=== PATIENT | female | born 1985 | race Caucasian/White ===

== ENCOUNTER 2018-03-14 23:57 | Inpatient (IN) | payer BC, OTHER ==
[2018-03-15] MEDS ORDERED: OXYTOCIN/DEXTROSE 5%-WATER 30 UNITS/500 ML BAG IV ONE (00:11)
[2018-03-15] MEDS ORDERED: DEXTROSE 5%-LACTATED RINGERS 1,000 ML IV PRN (00:11)
[2018-03-15] MEDS ORDERED: ONDANSETRON HCL/PF 2 MG/ML VIAL IV PRN ×2 (00:11→15:08)
[2018-03-15] MEDS: MISOPROSTOL 100 MCG TABLET VG PRN ×2 (03:04→07:09)
[2018-03-15 03:30] LABS: Cocaine Ur Negative (NEGATIVE); Urine Barbiturate Negative (NEGATIVE); Urine Benzodiazepines Negative (NEGATIVE); Urine Opiates Negative (NEGATIVE); Urine PCP Negative (NEGATIVE); Urine THC Negative (NEGATIVE)
[2018-03-15] MEDS: RINGER'S SOLUTION,LACTATED 1,000 ML IV ONE ×2 (15:00→15:48)
[2018-03-15] MEDS ORDERED: NALOXONE HCL 1 MG/1 ML SYRG IV PRN (15:08)
[2018-03-15] MEDS ORDERED: BUPIVACAINE HCL/0.9 % NACL/PF 250 ML EP PRN (15:08)
[2018-03-15] MEDS ORDERED: fentaNYL CITRATE/PF 50 MCG/ML AMPUL IT SCH (15:15)
--- NOTE | 2018-03-15 15:31 | ANES ---
Anesthesia Pre Procedure Eval Vitals/Labs: Last Vital Signs Temp 36.2 C 03/15/18 01:25 Pulse 85 03/15/18 01:25 Resp 18 03/15/18 01:25 BP 116/78 03/15/18 01:25 Pulse Ox 99 03/15/18 01:25 HOME MEDICATIONS Ascorbic Acid [Vitamin C] 500 mg PO DAILY 08/12/15 [Last Taken 03/14/18] Calcium Carbonate [Calcium] 500 mg PO DAILY 08/12/15 [Last Taken 03/13/18] Levothyroxine Sodium [Unithroid] 50 mcg PO DAILY 08/12/15 [Last Taken 03/14/18] RX: Lysine 1,000 mg PO DAILY 08/12/15 [Last Taken 03/14/18] vitamin,calcium,szulgeio-onxe-egrgm acid tablet 1 tab PO DAILY 11/28/17 [Last Taken 03/14/18] Calcium 500 mg PO DAILY 03/15/18 [Last Taken 03/14/18] Allergies/Adverse Reactions: Allergies Allergy/AdvReac Type Severity Reaction Status Date / Time amoxicillin trihydrate Allergy Hives Verified 03/15/18 00:13 [From Augmentin] cefaclor [From Ceclor] Allergy Hives, rash Verified 03/15/18 00:13 hydroxyzine Allergy Hives Verified 03/15/18 00:13 Penicillins Allergy Hives Verified 03/15/18 00:13 potassium clavulanate Allergy Hives, Verified 03/15/18 00:13 [From Augmentin] Racing heart Sulfa (Sulfonamide Allergy Hives, rash Verified 03/15/18 00:13 Antibiotics) - Planned Procedure Planned Procedure: MEDICAL INDUCTION POST DATES Medication List Reviewed:: Yes Allergies Verified: Yes Medical History (Last Reviewed 03/15/18 @ 15:30 by Juventino Lemos CRNA) BMI 31.0-31.9,adult Onset Date: 08/01/16 Body piercing History of wisdom tooth extraction Onset Date: ~2005 Irritable bowel syndrome with constipation and diarrhea Onset Date: ~2016 Wears glasses Abnormal Pap smear of cervix Hx of LEEP approx. 13 years ago Thyroid cyst Onset Date: ~01/2017 Asthma As a child. Hospitalized as a child. Cervical dysplasia Onset Date: ~2005 Cold sore Fibromyalgia Assymptomatic in 2018 Hypothyroidism Questionable diagnosis-2nd opinion said her thyroid was fine. Last TSH 12/12/16 - 3.273. Surgical History (Last Reviewed 03/15/18 @ 15:30 by Juventino Lemos CRNA) mole removal Onset Date: ~2014 2014, 03/2016-Dr. Bowens, 2018-dr bowens H/O LEEP Onset Date: ~2006 2006 History of colonoscopy Onset Date: ~2016 IBSD History of colposcopy Onset Date: ~2006 2006, 2007, 2008, 2009. History of esophagogastroduodenoscopy (EGD) Onset Date: ~2016 Family History (Last Reviewed 03/15/18 @ 15:30 by Juventino Lemos CRNA) Aunt Diabetes Aunt Breast cancer Mother Ovarian cyst Sister Bipolar disorder Personality disorder in adult Sister Ovarian cyst - Family Anesthesia History Family History:: no untoward family reactions to anesthesia, no familial bleeding tendencies, no family history of clotting disorders, no family history of premature - Airway/Neck/Teeth Within Normal Limits:: Yes Teeth Condition: Intact Neck Exam: non-tender, full range of motion Mallampatti Score: 2 Thyromental (T-M) distance: > 6 cm Mandibulo Hyoid distance: > 3 cm - Respiratory Respiratory: chest non-tender, lungs clear Smoking Status: Never smoker Sleep Apnea currently treated: No Sleep Apnea by current assessment: No - Cardiovascular Patient History - Cardiac/Respiratory: No pertinent hx Tolerates Activity: Good Heart Sounds: S1 & S2, Regular - Anesthesia Assessment and Plan ASA Class: PS, II, E Anesthesia Type Plan: Epidural - CSE for labor analgesia
--- NOTE | 2018-03-15 15:48 | ANES ---
Post Anesthesia Discharge - Transfer of Care Transfer of Care handoff given to nurse: Yes - Discharge from PACU Discharge from PACU when meets criteria: Yes - Comfortable post epidural
--- NOTE | 2018-03-15 15:52 | ANES ---
Anesthesia Procedure Note Procedure Note: ANESTHESIA PROCEDURE NOTE Date of Procedure: 03/15/2018 Time of procedure: 1530. Performed by: Juventino Lemos CRNA, MSN Learning Services Coordinator: Meliza Oneill RN. Preprocedure diagnosis: Active labor, labor pain. Post procedure diagnosis: Same. Procedure:Epidural for labor analgesia L3 4. Indications: Labor pain. Findings: See below. Details of the procedure: The patient was placed on the side of the bed in sitting positionand prepped with DuraPrep then draped in a sterile fashion. Lidocaine 1% was infiltrated to the skin and subcutaneous tissues at the level of the L3 4 interspace. An 18-gauge Touhy needle was used to approach the epidural space with loss of resistance technique. Once loss of resistance was achieved a 27-gauge spinal needle was passed through the epidural needle and CSF was contacted. After CSF returned, 20 mcg of fentanyl was injected in the spinal needle was removed the epidural catheter was then threaded approximately 4 cm in the epidural needle was removed. The catheter was taped in place and after careful aspiration 3 mL of 1.5% lidocaine with 1-200,000 epinephrine was injected without change in maternal heart rate or sensorium. . EBL: Minimal. Fluids: N/A. Specimen: N/A. Post procedure condition: The patient tolerated the procedure well with good rel ief. No complications were noted. Thank you for this consultation. Juventino Lemos CRNA, MSN
--- NOTE | 2018-03-15 16:03 | ANES ---
Post Anesthesia Assessment - Vital Signs Vitals: Last Vital Signs Temp 36.5 C 03/15/18 15:51 Pulse 101 H 03/15/18 15:51 Resp 18 03/15/18 01:25 BP 130/77 03/15/18 15:51 Pulse Ox 99 03/15/18 15:51 Airway Patency: Normal - Mental Status Level Of Consciousness: Awake, Alert - Pain Level Pain Score: 0 - N/V Assessment Nausea/Vomiting Presence: None Dehydration:: No
--- NOTE | 2018-03-15 17:26 | HP ---
Chief Complaint - Chief Complaint Date of Service: 03/15/18 Time of Service: 17:19 Chief Complaint: induction of labor History of Present Illness: 32 yo at 40 2/7 wks presents for induction of labor due to early post dates. This complicated by h/o LEEP, hypothyroidism, childhood asthma. Rh positive Rubella immune GBS negative Medical History (Last Reviewed 03/15/18 @ 17:23 by Wallace Mao DO) BMI 31.0-31.9,adult Onset Date: 08/01/16 Body piercing History of wisdom tooth extraction Onset Date: ~2005 Irritable bowel syndrome with constipation and diarrhea Onset Date: ~2016 Wears glasses Abnormal Pap smear of cervix Hx of LEEP approx. 13 years ago Thyroid cyst Onset Date: ~01/2017 Asthma As a child. Hospitalized as a child. Cervical dysplasia Onset Date: ~2005 Cold sore Fibromyalgia Assymptomatic in 2018 Hypothyroidism Questionable diagnosis-2nd opinion said her thyroid was fine. Last TSH 12/12/16 - 3.273. Surgical History: Surgical History (Last Reviewed 03/15/18 @ 17:23 by Wallace Mao DO) mole removal Onset Date: ~2014 2014, 03/2016-Dr. Mcintosh, 2018-dr mcintosh H/O LEEP Onset Date: ~2006 2006 History of colonoscopy Onset Date: ~2016 IBSD History of colposcopy Onset Date: ~2006 2006, 2007, 2008, 2009. History of esophagogastroduodenoscopy (EGD) Onset Date: ~2016 Family History: Family History (Last Reviewed 03/15/18 @ 17:23 by Wallace Mao DO) Aunt Diabetes Aunt Breast cancer Mother Ovarian cyst Sister Bipolar disorder Personality disorder in adult Sister Ovarian cyst Social History: Preferred Language Slovak Smoking Status Never smoker Abuse History No History of abuse Psych History No pertinent hx (Last Updated 03/13/18 @ 09:47 by Wallace Mao DO) No Social History Section defined Review Of Systems (GEN) - Review of Systems Generalized/Overall Review: Present: No Symptoms Reported EENTM: Present: No Symptoms Reported Respiratory: Present: No Symptoms Reported Cardiac: Present: No Symptoms Reported Abdominal: Present: No Symptoms Reported Genitourinary: Present: No Symptoms Reported Musculoskeletal: Present: No Symptoms Reported Neurological: Present: No Symptoms Reported Skin: Present: No Symptoms Reported Immunizations: IMMUNIZATION HX Immunizations Up to Date Yes History of Influenza Vaccine Yes Hx Pneumococcal Vaccination No Allergies/Adverse Reactions: Allergies Allergy/AdvReac Type Severity Reaction Status Date / Time amoxicillin trihydrate Allergy Hives Verified 03/15/18 00:13 [From Augmentin] cefaclor [From Ceclor] Allergy Hives, rash Verified 03/15/18 00:13 hydroxyzine Allergy Hives Verified 03/15/18 00:13 Penicillins Allergy Hives Verified 03/15/18 00:13 potassium clavulanate Allergy Hives, Verified 03/15/18 00:13 [From Augmentin] Racing heart Sulfa (Sulfonamide Allergy Hives, rash Verified 03/15/18 00:13 Antibiotics) Home Medications: HOME MEDICATIONS Ascorbic Acid [Vitamin C] 500 mg PO DAILY 08/12/15 [Last Taken 03/14/18] Calcium Carbonate [Calcium] 500 mg PO DAILY 08/12/15 [Last Taken 03/13/18] Levothyroxine Sodium [Unithroid] 50 mcg PO DAILY 08/12/15 [Last Taken 03/14/18] Lysine 1,000 mg PO DAILY 08/12/15 [Last Taken 03/14/18] vitamin,calcium,mytzobll-wyjk-asmwm acid tablet 1 tab PO DAILY 11/28/17 [Last Taken 03/14/18] Calcium 500 mg PO DAILY 03/15/18 [Last Taken 03/14/18] Exam - Exam Vital Signs: Vital Signs - Last Taken Temp 36.5 C 03/15/18 15:51 Pulse 101 H 03/15/18 15:51 Resp 18 03/15/18 01:25 BP 130/77 03/15/18 15:51 Pulse Ox 99 03/15/18 15:51 Constitutional: Present: Alert, Oriented x3, Cooperative ENT Exam: Present: hearing grossly normal Breasts: Present: Exam deferred Respiratory: Present: lungs clear Cardiovascular/Chest: Present: normal peripheral pulses, regular rate, rhythm, no edema Abdomen: Present: soft, nontender, other - gravid /Rectal: Present: Other - cervix - cl/70/-2 Extremity: Present: non-tender, no pedal edema, no calf tenderness Skin Exam: Present: normal color, warm/dry, no cyanosis Lymphatic: Present: no adenopathy Neurologic: Present: alert, normal mood/affect, oriented x 3 Appearance: Present: appropriate appearance, appropriate insight Eye contact: Present: cooperative, good eye contact, normal speech Thoughts: Present: normal thought pattern Diagnostic Studies: Laboratory Results Urine Opiates Screen Negative (NEGATIVE) 03/15/18 03:20 Barbiturate Screen Negative (NEGATIVE) 03/15/18 03:20 Ur Phencyclidine Scrn Negative (NEGATIVE) 03/15/18 03:20 Urine Amphetamine Negative (NEGATIVE) 03/15/18 03:20 U Benzodiazepines Scrn Negative (NEGATIVE) 03/15/18 03:20 Urine Cocaine Screen Negative (NEGATIVE) 03/15/18 03:20 Urine Marijuana (THC) Negative (NEGATIVE) 03/15/18 03:20 Assessment/Plan - Assessment/Plan (1) Encounter for planned induction of labor Assessment: Admit for cytotec induction of labor. Will probably need cervical band broke at some point. Pitocin augmentation and Epidural PRN. Problem: Acute (2) Hypothyroid Problem: Acute Qualifiers: Hypothyroidism type: unspecified Qualified Code(s): E03.9 - Hypothyroidism, unspecified
--- NOTE | 2018-03-15 17:48 | PN ---
Progess Note - Interim Date: 03/15/18 Time: 17:45 Narrative: 03/15/18 17:45 Patient comfortable with epidural Vital signs stable. Pitocin at 9 mu/min. FHT: 140 baseline, reassuring Contractions q 3-4 min Cervix: 6/90/-2, AROM-old blood and clot, questionable meconium we'll await further loss of fluid to assess better Impression: Intrauterine at 40 2/7 weeks, induction of labor for early post dates Plan: Anticipate normal spontaneous vaginal delivery soon.
[2018-03-15 20:33] LABS: Hematocrit 41.5 % (37.0-47.0); Hemoglobin 14.5 gm/dL (12.5-16.0); Mean Corpuscular Hemoglobin 31.8 pg (27-31); Mean Corpuscular Hgb Conc 34.9 g/dl (32-36); Mean Platelet Volume 9.9 fl (8-12.5); Neutrophil # 16.7 K/mm3 (1.3-6.0); Neutrophil % 81.8 % (42-75.0); Platelet Count 247 K/mm3 (150-450); Red Blood Count 4.56 M/mm3 (4.2-5.4); Red Cell Distribution Width 13.2 % (11.5-14.0); White Blood Count 20.4 K/mm3 (4.0-10.5)
[2018-03-15 20:46] LABS: Albumin * 2.5 gm/dl (3.4-5.0); Anion Gap 17.2 mmol/L (6.8-13.8); BUN/Creatinine Ratio 5.7 (9.0-21.6); Bilirubin, Total 0.6 mg/dL (0.0-1.1); Ca. Corrected For Albumin 9.5 mg/dL (8.4-10.2); Calcium * 8.6 mg/dL (7.9-10.9); Carbon Dioxide 19.4 mmol/L (24-32.6); Potassium 3.6 mmol/L (3.4-4.6); Random Urine Total Protein 29.4 mg/dL (0-12); Total Protein 6.7 gm/dL (6.2-8.2)
--- NOTE | 2018-03-15 21:13 | PN ---
Progess Note - Interim Date: 03/15/18 Time: 21:00 Narrative: 03/15/18 21:00 Patient comfortable with epidural. She specifically denies headache, visual changes, epigastric pain, chest pain, or shortness of breath Blood pressures have been moderate late elevated with occasional severe blood pressure. Pulse elevated 120 to 140s, only transient response with vagal maneuvers. Pulse oximetry 99% on room air. Temperature all within normal limits. Pitocin at 3 mu/min. FHT:150 baseline, reassuring Contractions q 34 min, only approximately 100 [place] units Cervix: 8/90/-2, fluid coming out since intrauterine pressure catheter placed has been moderate meconium Impression: Intrauterine at 40 2/7 weeks. Induction of labor for early post dates. Preeclampsia. Maternal tachycardia of unknown etiology at present. Moderate meconium-stained fluid. Plan: We'll placed on seizure precautions. Watch closely for signs of chorioamnionitis and/or PE. Anticipate normal spontaneous vaginal delivery soon. After delivery if pulse remains elevated will obtain an EKG and consider adenosine.
[2018-03-16] MEDS ORDERED: SENNOSIDES 8.6 MG TABLET PO PRN (02:21)
[2018-03-16] MEDS ORDERED: BISACODYL 10 MG SUPP.RECT RC PRN (02:21)
[2018-03-16] MEDS ORDERED: GLYCERIN/WITCH HAZEL LEAF 40 APPL BOX TP PRN (02:21)
[2018-03-16] MEDS ORDERED: oxyCODONE HCL/ACETAMINOPHEN 1 TAB TABLET PO PRN (02:21)
[2018-03-16] MEDS ORDERED: RINGER'S SOLUTION,LACTATED 1,000 ML IV PRN (02:21)
[2018-03-16] MEDS ORDERED: HYDROCORTISONE 30 APPL TUBE TP PRN (02:21)
[2018-03-16] MEDS ORDERED: OXYTOCIN/DEXTROSE 5%-WATER 30 UNITS/500 ML BAG IV ONE (02:21)
[2018-03-16] MEDS ORDERED: BENZOCAINE/MENTHOL 81 SPRAY CAN TP PRN (02:21)
--- NOTE | 2018-03-16 02:32 | OR ---
Operative Report - Dictated Report Narrative: Indication: tachycardia with decreased variability and frequent sergio iable/late decelerations Pre Procedure Patient was counseled to the risk, benefits, and alternatives to operative vaginal delivery. All questions were answered. Patient consented to proceed with operative vaginal delivery. heart rate interpretation: tachycardia with decreased variability and frequent variable/late decelerations, EFW 9 pounds, station +2, Position of head CIERA, Anesthesia: epidural Cervix was completely dilated and effaced, maternal- size appropriate for application, bladder was emptied Procedure Chang/Luikart forceps easily applied, hinge/lock approximated without difficulty, 2 pulls, advancement in station with each pull, degree of rotation 0-45 Post Procedure Viable vigorous crying female born at 0051 on 03/16/2018 with Apgars 9 and 9, weighing 3786 g in CIERA position with thick meconium. Cord clamping delayed approximately 1 minute. Cord gases not collected Placenta spontaneously delivered complete and intact EBL 200 mL no injury or shoulder dystocia Lacerations: Bilateral vaginal sulcus tears repaired with 3-0 Vicryl Rapide, second degree vaginal laceration (6 cm) repaired with 0 Vicryl and 3-0 Vicryl Rapide History for MU Definition: * The number of deliveries resulting in a live the patient experienced prior to current hospitalization * The previous delivery of live twins or any live multiple gestation is considered one live event. *If primagravida or nulliparous is documented select zero for the number of previous live births. Live Events: 0
[2018-03-16] MEDS: IBUPROFEN 800 MG TABLET PO PRN ×3 (07:24→20:16)
[2018-03-16] MEDS: LEVOTHYROXINE SODIUM 50 MCG TABLET PO SCH (07:37)
[2018-03-16] MEDS: DOCUSATE SODIUM 100 MG CAPSULE PO SCH ×2 (09:25→20:15)
[2018-03-16] MEDS: PRENATAL VITS96/IRON FUM/FOLIC 1 TAB TABLET PO SCH (09:25)
[2018-03-16] MEDS: CALCIUM CARBONATE/VITAMIN D3 1 TAB TABLET PO SCH (09:25)
[2018-03-16] MEDS: ASCORBIC ACID 500 MG TABLET PO SCH (09:25)
[2018-03-16] MEDS: Lysine 1,000 MG PO SCH (09:28)
[2018-03-17] MEDS: MAGNESIUM HYDROXIDE 30 ML UDC TP PRN ×2 (01:20→21:31)
[2018-03-17] MEDS: oxyCODONE HCL/ACETAMINOPHEN 1 TAB TABLET PO PRN ×5 (01:20→16:04)
[2018-03-17] MEDS: IBUPROFEN 800 MG TABLET PO PRN ×3 (04:20→23:05)
[2018-03-17] MEDS: DOCUSATE SODIUM 100 MG CAPSULE PO SCH ×2 (08:26→21:30)
[2018-03-17] MEDS: LEVOTHYROXINE SODIUM 50 MCG TABLET PO SCH (08:26)
[2018-03-17] MEDS: ASCORBIC ACID 500 MG TABLET PO SCH (08:26)
[2018-03-17] MEDS: CALCIUM CARBONATE/VITAMIN D3 1 TAB TABLET PO SCH (08:26)
[2018-03-17] MEDS: PRENATAL VITS96/IRON FUM/FOLIC 1 TAB TABLET PO SCH (08:26)
[2018-03-17] MEDS: Lysine 1,000 MG PO SCH (10:14)
--- NOTE | 2018-03-17 14:02 | PN ---
Subjective - Date and Time Seen Date: 03/17/18 Time: 14:01 Objective - Vitals Vitals: Last Vital Signs Temp 36.2 C 03/17/18 07:43 Pulse 95 03/17/18 07:43 Resp 18 03/17/18 07:43 BP 105/65 03/17/18 07:43 Pulse Ox 99 03/17/18 07:43 Patient denies complaints. Specifically denies headache, visual changes, or epigastric pain. Breast-feeding well Lochia wnl Abdomen - soft, nontender Uterus - firm, at umbilicus - 1 No calf tenderness. DTR-2/4, no edema in lower extremities Impression: day #1 - s/p spontaneous vaginal delivery. Mild preeclampsia-resolving well. Hypothyroidism-stable. Plan: Continue routine care. Continue to observe closely for signs/symptoms of severe preeclampsia. Cauti Physician Documentation - Urinary Catheter Management Urethral (Saldaña) Date of Insertion: 03/15/18 Time of Insertion: 16:30 Date of Removal: 03/16/18 Time of Removal: 11:30 Assessment/Plan - Problems/Diagnosis (1) Encounter for planned induction of labor Problem: Acute (2) Hypothyroid Problem: Acute Qualifiers: Hypothyroidism type: unspecified Qualified Code(s): E03.9 - Hypothyroidism, unspecified
[2018-03-18] MEDS: IBUPROFEN 800 MG TABLET PO PRN ×2 (05:05→12:18)
[2018-03-18 08:06] VITALS: BP 110/55
[2018-03-18] MEDS: CALCIUM CARBONATE/VITAMIN D3 1 TAB TABLET PO SCH (08:59)
[2018-03-18] MEDS: DOCUSATE SODIUM 100 MG CAPSULE PO SCH (08:59)
[2018-03-18] MEDS: PRENATAL VITS96/IRON FUM/FOLIC 1 TAB TABLET PO SCH (08:59)
[2018-03-18] MEDS: LEVOTHYROXINE SODIUM 50 MCG TABLET PO SCH (08:59)
[2018-03-18] MEDS: ASCORBIC ACID 500 MG TABLET PO SCH (08:59)
[2018-03-18] MEDS: Lysine 1,000 MG PO SCH (09:00)
--- NOTE | 2018-03-18 09:26 | PN ---
Subjective - Date and Time Seen Date: 03/18/18 Time: 09:25 Objective - Vitals Vitals: Last Vital Signs Temp 37.1 C 03/18/18 08:02 Pulse 92 03/18/18 08:02 Resp 18 03/18/18 08:02 BP 110/55 03/18/18 08:02 Pulse Ox 98 03/18/18 08:02 Patient denies complaints. Lochia wnl Abdomen - soft, nontender Uterus - firm, at umbilicus - 2 No calf tenderness Impression: day #2 - s/p spontaneous vaginal delivery. Preeclampsia- resolved. Hypothyroidism-stable Plan: Routine discharge instructions. Preeclampsia precautions. Follow-up in 1-2 weeks for blood pressure check and 4-5 weeks for visit. Cauti Physician Documentation - Urinary Catheter Management Urethral (Saldaña) Date of Insertion: 03/15/18 Time of Insertion: 16:30 Date of Removal: 03/16/18 Time of Removal: 11:30 Assessment/Plan - Problems/Diagnosis (1) Encounter for planned induction of labor Problem: Acute (2) Hypothyroid Problem: Acute Qualifiers: Hypothyroidism type: unspecified Qualified Code(s): E03.9 - Hypothyroidism, unspecified
== END 2018-03-18 15:35 | disposition home or self-care (01) | DRG 806 ==
LOC: OB 23:57
PROVIDERS: ADMIT Obstetrics & Gynecology; ATTEND Obstetrics & Gynecology
CPT/HCPCS: 36415; 59025; 80053; 80307; 82570; 84155; 84156; 85025; 88307; G0479

== ENCOUNTER 2020-09-28 09:55 | Inpatient (IN) ==
[2020-09-28] MEDS ORDERED: OXYTOCIN/0.9 % SODIUM CHLORIDE 30 UNITS/500 ML BAG IV ONE (10:23)
[2020-09-28] MEDS ORDERED: DEXTROSE 5%-LACTATED RINGERS 1,000 ML IV PRN (10:23)
[2020-09-28] MEDS ORDERED: ONDANSETRON 4 MG TAB.RAPDIS PO PRN (10:23)
[2020-09-28] MEDS: RINGER'S SOLUTION,LACTATED 1,000 ML IV ONE ×2 (10:35→18:35)
--- NOTE | 2020-09-28 12:29 | HP ---
Chief Complaint - Chief Complaint Date of Service: 09/28/20 Time of Service: 12:28 Chief Complaint: induction of labor for post dates with late deceleration on NST History of Present Illness: 34 yo at 40w2d presents to L&D for induction of labor due to post dates with a late deceleration on NST in office today. This complicated by asthma, hypothyroid, post dates, h/o preeclampsia, and h/o LEEP. Rh positive Rubella immune GBS negative Medical History (Last Reviewed 09/28/20 @ 18:03 by Wallace Mao DO) History of pre-eclampsia (Chronic) Hypothyroid (Inactive) BMI 31.0-31.9,adult Onset Date: 08/01/16 Body piercing Irritable bowel syndrome with constipation and diarrhea Onset Date: ~2016 Pre-eclampsia affecting , antepartum Onset Date: 03/16/18 Mild Wears glasses Abnormal Pap smear of cervix Hx of LEEP approx. 13 years ago Bilateral leg paresthesia (Resolved) patella, tops of feet Dehydration, mild (Resolved) Encounter for planned induction of labor (Resolved) Hemorrhoids (Resolved) improving with OTC tx Influenza A (Resolved) Influenza vaccination declined (Resolved) Onset Date: 03/06/18 Will get @ employment 03/08/18 Low forceps delivery of first (Resolved) Mother currently breast-feeding (Resolved) Pre-eclampsia (Resolved) Routine Follow-Up (Resolved) Thyroid cyst Onset Date: ~01/2017 Asthma As a child. Hospitalized as a child. Cervical dysplasia Onset Date: ~2005 Cold sore Fibromyalgia Assymptomatic in 2018 Hypothyroidism Questionable diagnosis-2nd opinion said her thyroid was fine. Last TSH 12/12/16 - 3.273. Surgical History: Surgical History (Last Reviewed 09/28/20 @ 18:03 by Wallace Mao DO) History of wisdom tooth extraction Onset Date: ~2005 mole removal Onset Date: ~2014 2014, 03/2016-Dr. Mcintosh, 2018-dr mcintosh H/O LEEP Onset Date: ~2006 2006 History of colonoscopy Onset Date: ~2016 IBSD History of colposcopy Onset Date: ~2006 2006, 2008, 2009, 2009. History of esophagogastroduodenoscopy (EGD) Onset Date: ~2016 Family History: Family History (Last Reviewed 09/28/20 @ 18:03 by Wallace Mao DO) Aunt Diabetes Aunt Breast cancer Mother Ovarian cyst Sister Bipolar disorder Personality disorder in adult Sister Ovarian cyst Daughter Polydactyly Social History: (Last Updated 09/28/20 @ 13:14 by Wallace Mao DO) Social History: fci: No Marital status: household members: spouse number of children: 0 current occupational status: employed current occupation: Teacher current occupational exposures/hazards: No Service: No Tobacco: Smoking Status: Former smoker how long ago did patient quit smoking: Social smoker. Stopped 10/2019 Alcohol: alcohol intake: current alcohol intake frequency: a few times a week details: Socially on weekends- none with Substance Use: substance use type: does not use Dietary Habits: caffeine: Yes caffeine comment: 1 daily Type: tea Exercise: Physical activity type: none Anupama/Baptist: agree to transfusion: Yes Review Of Systems (GEN) - Review of Systems Generalized/Overall Review: Present: No Symptoms Reported EENTM: Present: No Symptoms Reported Respiratory: Present: No Symptoms Reported Cardiac: Present: No Symptoms Reported Abdominal: Present: No Symptoms Reported Genitourinary: Present: No Symptoms Reported Musculoskeletal: Present: No Symptoms Reported Neurological: Present: No Symptoms Reported Skin: Present: No Symptoms Reported Endocrine: Present: No Symptoms Reported Immunizations: IMMUNIZATION HX Immunizations Up to Date Yes History of Influenza Vaccine Yes Hx Pneumococcal Vaccination No Allergies/Adverse Reactions: Allergies Allergy/AdvReac Type Severity Reaction Status Date / Time amoxicillin trihydrate Allergy Hives Verified 09/28/20 09:06 [From Augmentin] cefaclor [From Ceclor] Allergy Hives, rash Verified 09/28/20 09:06 hydroxyzine Allergy Hives Verified 09/28/20 09:06 Penicillins Allergy Hives Verified 09/28/20 09:06 potassium clavulanate Allergy Hives, Verified 09/28/20 09:06 [From Augmentin] Racing heart Sulfa (Sulfonamide Allergy Hives, rash Verified 09/28/20 09:06 Antibiotics) Home Medications: HOME MEDICATIONS Ascorbic Acid [Vitamin C] 500 mg PO DAILY 08/12/15 [Last Taken 09/28/20 08:00] Lysine 1,000 mg PO DAILY 08/12/15 [Last Taken 03/14/18] calcium carbonate 600 mg (1,500 mg)-vitamin D3 400 unit tablet 1 tab PO DAILY 12/17/18 [Last Taken Unknown] aspirin 81 mg tablet,delayed release 81 mg PO DAILY 04/09/20 [Last Taken Un known] breast pump See Rx Instructions .ROUTE .AL #1 ea 09/03/20 [Last Taken Unknown] Vits96/Iron Fum/Folic [ S] 1 tab PO DAILY 09/28/20 [Last Taken Unknown] Exam - Exam Vital Signs: T 36.7C, P 91, R20, P98%, BP 128/87 Constitutional: Present: Alert, Oriented x3, Cooperative ENT Exam: Present: hearing grossly normal Neck: Present: non-tender. Absent: thyromegaly Breasts: Present: Exam deferred Respiratory: Present: lungs clear, no respiratory distress Cardiovascular/Chest: Present: normal peripheral pulses, regular rate, rhythm, no edema Abdomen: Present: soft, nontender, no rebound tenderness, other - gravid /Rectal: Present: Other Extremity: Present: no pedal edema, no calf tenderness Skin Exam: Present: normal color, warm/dry, no cyanosis Lymphatic: Present: no adenopathy Neurologic: Present: alert, normal mood/affect, oriented x 3 Appearance: Present: appropriate appearance, appropriate insight Eye contact: Present: cooperative Thoughts: Present: normal mood /affect Assessment/Plan - Assessment/Plan (1) Late deceleration of heart rate Assessment: Admit for induction of labor. Epidural PRN. Problem: Acute (2) History of pre-eclampsia Problem: Chronic (3) Hypothyroid Problem: Inactive Qualifiers: Hypothyroidism type: unspecified Qualified Code(s): E03.9 - Hypothyroidism, unspecified
--- NOTE | 2020-09-28 12:31 | PN ---
Progess Note - Interim Date: 09/28/20 Time: 12:29 Narrative: 09/28/20 12:29 Patient rating contractions as mild Vital signs stable. Pitocin at 2 mu/min. FHT: 140 baseline, reassuring with 1 late deceleration since admission. Contractions q 2-3 min Cervix: 2-3/60/-2, Salda[place] bulb inserted into cervical canal and inflated with 75 mL of sterile saline. Impression: Intrauterine at 40 2/7 weeks induction of labor due to late deceleration found on NST for postdates today. Plan: Continue with induction of labor.
[2020-09-28] MEDS ORDERED: NALOXONE HCL 1 MG/1 ML SYRG IV PRN (18:00)
[2020-09-28] MEDS ORDERED: BUPIVACAINE HCL/PF 30 ML VIAL EP SCH (18:00)
[2020-09-28] MEDS ORDERED: BUPIVACAINE HCL/0.9 % NACL/PF 250 ML EP PRN (18:00)
[2020-09-28] MEDS ORDERED: ONDANSETRON HCL/PF 2 MG/ML VIAL IV PRN (18:00)
--- NOTE | 2020-09-28 18:21 | PN ---
Progess Note - Interim Date: 09/28/20 Time: 18:19 Narrative: 09/28/20 18:19 Patient rating her contractions as moderate Vital signs stable. Pitocin at 4 mu/min. FHT: 130 baseline, reassuring contractions q 2-3 min Cervix: 7/75/-2, AROM at 1744-clear. Impression: Intrauterine at 40 2/7 weeks induction of labor for late deceleration found on NST for postdates. Plan: Progressing well. Anticipate normal spontaneous vaginal delivery soon. Will prepare for epidural.
--- NOTE | 2020-09-28 18:35 | ANES ---
Anesthesia Pre Procedure Eval Vitals/Labs: Last Vital Signs Temp 36.7 C 09/28/20 10:15 Pulse 91 09/28/20 10:15 Resp 20 09/28/20 10:15 BP 128/87 09/28/20 10:15 Pulse Ox 98 09/28/20 10:15 HOME MEDICATIONS Ascorbic Acid [Vitamin C] 500 mg PO DAILY 08/12/15 [Last Taken 09/28/20 08:00] Lysine 1,000 mg PO DAILY 08/12/15 [Last Taken 03/14/18] calcium carbonate 600 mg (1,500 mg)-vitamin D3 400 unit tablet 1 tab PO DAILY 12/17/18 [Last Taken Unknown] aspirin 81 mg tablet,delayed release 81 mg PO DAILY 04/09/20 [Last Taken Unknown] breast pump See Rx Instructions .ROUTE .MEDSUPPLY #1 ea 09/03/20 [Last Taken Unknown] Vits96/Iron Fum/Folic [ S] 1 tab PO DAILY 09/28/20 [Last Taken Unknown] Allergies/Adverse Reactions: Allergies Allergy/AdvReac Type Severity Reaction Status Date / Time amoxicillin trihydrate Allergy Hives Verified 09/28/20 09:06 [From Augmentin] cefaclor [From Ceclor] Allergy Hives, rash Verified 09/28/20 09:06 hydroxyzine Allergy Hives Verified 09/28/20 09:06 Penicillins Allergy Hives Verified 09/28/20 09:06 potassium clavulanate Allergy Hives, Verified 09/28/20 09:06 [From Augmentin] Racing heart Sulfa (Sulfonamide Allergy Hives, rash Verified 09/28/20 09:06 Antibiotics) - Planned Procedure Planned Procedure: Medical Induction post dates Medical History (Last Reviewed 09/28/20 @ 18:03 by Wallace Mao DO) History of pre-eclampsia (Chronic) Hypothyroid (Inactive) BMI 31.0-31.9,adult Onset Date: 08/01/16 Body piercing Irritable bowel syndrome with constipation and diarrhea Onset Date: ~2016 Pre-eclampsia affecting , antepartum Onset Date: 03/16/18 Mild Wears glasses Abnormal Pap smear of cervix Hx of LEEP approx. 13 years ago Bilateral leg paresthesia (Resolved) patella, tops of feet Dehydration, mild (Resolved) Encounter for planned induction of labor (Resolved) Hemorrhoids (Resolved) improving with OTC tx Influenza A (Resolved) Influenza vaccination declined (Resolved) Onset Date: 03/06/18 Will get @ employment 03/08/18 Low forceps delivery of first (Resolved) Mother currently breast-feeding (Resolved) Pre-eclampsia (Resolved) Routine Follow-Up (Resolved) Thyroid cyst Onset Date: ~01/2017 Asthma As a child. Hospitalized as a child. Cervical dysplasia Onset Date: ~2005 Cold sore Fibromyalgia Assymptomatic in 2017 Hypothyroidism Questionable diagnosis-2nd opinion said her thyroid was fine. Last TSH 12/12/16 - 3.273. Surgical History (Last Reviewed 09/28/20 @ 18:03 by Wallace Mao DO) History of wisdom tooth extraction Onset Date: ~2005 mole removal Onset Date: ~2014 2014, 03/2016-Dr. Mcintosh, 2018-dr mcintosh H/O LEEP Onset Date: ~2006 2006 History of colonoscopy Onset Date: ~2016 IBSD History of colposcopy Onset Date: ~2006 2006, 2007, 2008, 2009. History of esophagogastroduodenoscopy (EGD) Onset Date: ~2016 Family History (Last Reviewed 09/28/20 @ 18:03 by Wallace Mao DO) Aunt Diabetes Aunt Breast cancer Mother Ovarian cyst Sister Bipolar disorder Personality disorder in adult Sister Ovarian cyst Daughter Polydactyly - Anesthesia Assessment and Plan ASA Class: PS, II Anesthesia Type Plan: Epidural
--- NOTE | 2020-09-28 18:54 | ANES ---
Anesthesia Procedure Note Procedure Note: ANESTHESIA PROCEDURE NOTE Date of Procedure: 09/28/2020. Time of procedure: 1839. Performed by: Robbie Ramirez CRNA Manager Metrology: None. Preprocedure diagnosis: Active labor. Post procedure diagnosis: Same. Procedure: Insertion of labor epidural. Indications: The patient is a 34-year-old female in active labor requesting labor epidural for pain management. Findings: See below. Details of the procedure: The patient was placed in a sitting position. DuraPrep as well as Betadine swabs X3 was applied to the patient's back. Patient was then draped in a sterile fashion. Lidocaine 1% was infiltrated to the skin and subcutaneous tissues at the level of the L3-4 interspace. The epidural space was identified using a 18-gauge Tuohy needle with [id number] technique. Epidural catheter was inserted to a depth of 11 centimeters at skin. Negative test dose was elicited using 3 mL of 1.5% preservative-free lidocaine plus epinephrine 1 200,000. The epidural catheter was then taped and secured in place. A loading dose of 8 mL of 0.25% preservative-free bupivacaine was administered to the epidural catheter after negative aspiration for blood and CSF. EBL: Minimal. Fluids: N/A. Specimen: N/A. Post procedure condition: The patient tolerated the procedure well. No complications were noted. Thank you for this consultation. Robbie Ramirez CRNA
--- NOTE | 2020-09-28 18:55 | ANES ---
Post Anesthesia Assessment - Vital Signs Vitals: Last Vital Signs Temp 36.7 C 09/28/20 10:15 Pulse 91 09/28/20 10:15 Resp 20 09/28/20 10:15 BP 128/87 09/28/20 10:15 Pulse Ox 98 09/28/20 10:15 Airway Patency: Normal - Mental Status Level Of Consciousness: Awake - N/V Assessment Nausea/Vomiting Presence: None Dehydration:: No
--- NOTE | 2020-09-28 21:34 | PN ---
Progess Note - Interim Date: 09/28/20 Time: 21:31 Narrative: 09/28/20 21:31 Patient comfortable with epidural Vital signs stable. Pitocin at 6 mu/min. FHT: 130 baseline, reassuring contractions q 2-3 min Cervix: 7/75/-3 Impression: Intrauterine at 40 2/7 weeks. Induction of labor for late deceleration during nonstress test in postdate patient. Plan: We will continue with position changes and induction.
[2020-09-29] MEDS ORDERED: GLYCERIN/WITCH HAZEL LEAF 40 APPL BOX TP PRN (00:45)
[2020-09-29] MEDS ORDERED: BISACODYL 10 MG SUPP.RECT RC PRN (00:45)
[2020-09-29] MEDS ORDERED: IBUPROFEN 800 MG TABLET PO PRN (00:45)
[2020-09-29] MEDS ORDERED: OXYTOCIN/0.9 % SODIUM CHLORIDE 30 UNITS/500 ML BAG IV ONE (00:45)
[2020-09-29] MEDS ORDERED: HYDROCORTISONE 30 APPL TUBE TP PRN (00:45)
[2020-09-29] MEDS ORDERED: BENZOCAINE/MENTHOL 81 SPRAY CAN TP PRN (00:45)
[2020-09-29] MEDS ORDERED: NON-FORMULARY 1 DOSE DOSE (Breast Pump device) TP SCH (00:45)
[2020-09-29] MEDS ORDERED: SENNOSIDES 8.6 MG TABLET PO PRN (00:45)
--- NOTE | 2020-09-29 00:48 | OR ---
Operative Report - Dictated Report Narrative: Spontaneous vaginal delivery of vigorously crying viable female at 0016 on 09/29/2020 with Apgars 8 and 9, weighing 3566 g in RIANA position with tight nuchal cord x1. Cord clamping delayed approximately 1 minute Placenta delivered complete, intact, with three vessel cord Estimated blood loss: 100 ml Anesthesia: Epidural Lacerations: 4 cm second-degree vaginal laceration repaired with 3-0 Vicryl Rapide. History for MU History for Definition: * The number of deliveries resulting in a live the patient experienced prior to current hospitalization * The previous delivery of live twins or any live multiple gestation is considered one live event. *If primagravida or nulliparous is documented select zero for the number of previous live births. Live Events: Live Events: 1
[2020-09-29] MEDS: IBUPROFEN 800 MG TABLET PO PRN ×3 (03:22→22:55)
[2020-09-29] MEDS: oxyCODONE HCL/ACETAMINOPHEN 1 TAB TABLET PO PRN (07:08)
[2020-09-29] MEDS: DOCUSATE SODIUM 100 MG CAPSULE PO SCH ×2 (08:30→20:08)
[2020-09-29] MEDS: ASCORBIC ACID 500 MG TABLET PO SCH (08:30)
[2020-09-29] MEDS: CALCIUM CARBONATE/VITAMIN D3 1 TAB TABLET PO SCH (08:30)
[2020-09-29] MEDS: PRENATAL VITS96/IRON FUM/FOLIC 1 TAB TABLET PO SCH (08:30)
[2020-09-30] MEDS: oxyCODONE HCL/ACETAMINOPHEN 1 TAB TABLET PO PRN (01:48)
[2020-09-30] MEDS: IBUPROFEN 800 MG TABLET PO PRN ×3 (05:56→19:25)
[2020-09-30] MEDS: DOCUSATE SODIUM 100 MG CAPSULE PO SCH ×2 (08:49→20:50)
[2020-09-30] MEDS: PRENATAL VITS96/IRON FUM/FOLIC 1 TAB TABLET PO SCH (08:49)
[2020-09-30] MEDS: CALCIUM CARBONATE/VITAMIN D3 1 TAB TABLET PO SCH (08:49)
[2020-09-30] MEDS: ASCORBIC ACID 500 MG TABLET PO SCH (08:49)
--- NOTE | 2020-09-30 09:05 | PN ---
Subjective - Date and Time Seen Date: 09/30/20 Time: 09:05 Objective - Vitals Vitals: Last Vital Signs Temp 36.2 C 09/30/20 07:00 Pulse 83 09/30/20 07:00 Resp 18 09/30/20 07:00 BP 110/78 09/30/20 07:00 Pulse Ox 96 09/30/20 07:00 Patient denies complaints. Lochia wnl abdomen - soft, nontender Uterus -firm, at umbilicus - 1 No calf tenderness Impression: day #1 - s/p spontaneous vaginal delivery. Plan: Continue routine care Cauti Physician Documentation - Urinary Catheter Management Urethral ([place]) Date of Insertion: 09/28/20 Time of Insertion: 19:30 Assessment/Plan - Problems/Diagnosis (1) Late deceleration of heart rate Problem: Acute (2) History of pre-eclampsia Problem: Chronic (3) Hypothyroid Problem: Inactive Qualifiers: Hypothyroidism type: unspecified Qualified Code(s): E03.9 - Hypothyroidism, unspecified
[2020-10-01] MEDS: IBUPROFEN 800 MG TABLET PO PRN ×2 (03:05→09:28)
[2020-10-01] MEDS: oxyCODONE HCL/ACETAMINOPHEN 1 TAB TABLET PO PRN ×2 (06:59→10:00)
--- NOTE | 2020-10-01 08:20 | PN ---
Subjective - Date and Time Seen Date: 10/01/20 Time: 08:18 Objective - Vitals Vitals: Last Vital Signs Temp 36.3 C 10/01/20 00:31 Pulse 96 10/01/20 00:31 Resp 16 10/01/20 00:31 BP 112/69 10/01/20 00:31 Pulse Ox 100 10/01/20 00:31 Patient denies complaints. Breast-feeding. Lochia wnl abdomen - soft, nontender Uterus -firm, at umbilicus - 2 No calf tenderness Impression: day #2 - s/p spontaneous vaginal delivery. Hypothyroid- stable. Plan: Routine discharge instructions. Patient may have to board for baby since her daughter is not feeding well. Will await lines tender's assessment and decision. Cauti Physician Documentation - Urinary Catheter Management Urethral ([place]) Date of Insertion: 09/28/20 Time of Insertion: 19:30 Assessment/Plan - Problems/Diagnosis (1) Late deceleration of heart rate Problem: Acute (2) History of pre-eclampsia Problem: Chronic (3) Hypothyroid Problem: Inactive Qualifiers: Hypothyroidism type: unspecified Qualified Code(s): E03.9 - Hypothyroidism, unspecified
--- NOTE | 2020-10-01 08:21 | DS ---
OB Discharge Summary (1) Late deceleration of heart rate Status: Resolved (2) History of pre-eclampsia Status: Chronic (3) Hypothyroid Status: Inactive Qualifiers: Hypothyroidism type: unspecified Qualified Code(s): E03.9 - Hypothyroidism, unspecified (4) Normal vaginal delivery of second Status: Acute Delivery Date: 09/29/20 Delivery Time: 00:16 :: 2 Para:: 2 Gestational weeks:: 40 Gestational days:: 3 Intrapartum Procedures: Spontaneous Vaginal Delivery, Delivered, Anesthesia - Epidural /OP Complications: No Complications Discharge Diagnosis: Term -Delivered - Discharge Information Date of Discharge: 10/01/20 Hospital Course: 34-year-old 2 now para 2 admitted at 40 4/7 weeks for induction of labor due to late decelerations on routine NST. Patient continued to have occasional late decelerations throughout labor but delivery and course were uncomplicated for mother. The baby had a tight nuchal cord, normal Apgars, but baby not feeding well due to always falling asleep. Discharge Location: Home Disposition: Home self-care Condition: Good Activity on Discharge:: Activity as tolerated, Pelvic Rest Discharge Diet: General/regular food Additional Patient Instructions (free text): Your follow up appt is on with Dr Mao. Avendano's follow up appt is on Monday10/02/2020 @ with Dr Gould. Her Blood Type is O-. Her Weight Today is 7 pounds 1.8 ounces. Her Bilirubin is 0.0 at 52 hours of age. Feed her on demand or at least every 2-[address] her on her back in her own crib or bassinet for sleep. No pillows, blankets, stuffed animals, or bumper pads in her sleep space. Please call with any questions/concerns. [facility] [phone]. [facility] [phone], [facility] [phone]. Prescriptions (Any new or edited meds): Ibuprofen [Motrin] 200 - 800 mg PO Q6H PRN #100 tab PRN Reason: Pain Complete Home Medications List: Complete Home Medication List: Ascorbic Acid [Vitamin C] 500 mg PO DAILY 08/12/15 Lysine 1,000 mg PO DAILY 08/12/15 calcium carbonate 600 mg (1,500 mg)-vitamin D3 400 unit tablet 1 tab PO DAILY 12/17/18 aspirin 81 mg tablet,delayed release 81 mg PO DAILY 04/09/20 breast pump See Rx Instructions .ROUTE .MEDSUPPLY #1 ea 09/03/20 Vits96/Iron Fum/Folic [ S] 1 tab PO DAILY 09/28/20 Ibuprofen [Motrin] 200 - 800 mg PO Q6H PRN #100 tab 09/29/20 - Plan Discharge to:: Home Follow up in office in:: 3-4 weeks - [place] Information Weight (Grams): 3,566 Sex: Female Score 1 min: 8 Score 5 min: 9 Infant Complications: None Other Complications: tight nuchal x 1
[2020-10-01 09:13] VITALS: BP 116/80
[2020-10-01] MEDS: PRENATAL VITS96/IRON FUM/FOLIC 1 TAB TABLET PO SCH (09:28)
[2020-10-01] MEDS: DOCUSATE SODIUM 100 MG CAPSULE PO SCH (09:28)
[2020-10-01] MEDS: ASCORBIC ACID 500 MG TABLET PO SCH (09:28)
[2020-10-01] MEDS: CALCIUM CARBONATE/VITAMIN D3 1 TAB TABLET PO SCH (09:28)
== END 2020-10-01 10:50 | disposition home or self-care (01) | DRG 807 ==
LOC: OB 09:55
PROVIDERS: ADMIT Obstetrics & Gynecology; ATTEND Obstetrics & Gynecology